=== PATIENT | male | born 1960 | race Caucasian/White ===

== ENCOUNTER → 2016-10-06 | Outpatient (REF) | payer OTHER ==
[~2016-10-06] MED LIST: ESOM1CAP5 PO; LISI10TA4 PO; PRAV1TAB39 PO
[2016-10-06 20:33] LABS: CHOLESTEROL LEVEL 212 MG/DL (<200); TRIGLYCERIDES LEVEL 60 MG/DL (<150)
== END ==
LOC: M SFHCCLAY 10:16
PROVIDERS: ATTEND Nurse Practitioner Family
DX: I10 Essential (primary) hypertension (principal); E78.4 Other hyperlipidemia; Z12.5 Encounter for screening for malignant neoplasm of prostate; E55.9 Vitamin D deficiency, unspecified

== ENCOUNTER → 2016-10-06 | Outpatient (REF) | payer OTHER ==
[2016-10-06 19:25] LABS: BASO % 0.1 % (0.0-1.0); EOS # 0.2 K/mm3 (0.0-0.50); EOS % 4.2 % (0.0-3.0); LYMPH # 0.8 K/mm3 (1.5-4.5); LYMPH % 17.4 % (24.0-44.0); MEAN CORPUSCULAR HEMOGLOBIN 29.1 pg (27.0-33.0); MEAN CORPUSCULAR HGB CONC 32.6 g/dl (32.0-36.5); MEAN CORPUSCULAR VOLUME 89.3 fl (80.0-96.0); MONO # 0.3 K/mm3 (0.0-0.8); MONO % 7.4 % (0.0-5.0); NEUTROPHILS # 3.1 K/mm3 (1.8-7.7); RED CELL DISTRIBUTION WIDTH 14.9 % (11.5-14.5); WHITE BLOOD COUNT 4.5 K/mm3 (4.0-10.0)
[2016-10-06 20:07] LABS: ALBUMIN 3.7 GM/DL (3.2-5.2); ALBUMIN/GLOBULIN RATIO 1.19 (1.00-1.93); ALKALINE PHOSPHATASE 79 U/L (45-117); ALT/SGPT 25 U/L (12-78); ANION GAP 5 MEQ/L (8-16); AST/SGOT 17 U/L (15-37); BILIRUBIN,TOTAL 0.5 MG/DL (0.2-1.0); BLOOD UREA NITROGEN 18 MG/DL (7-18); CALCIUM LEVEL 8.5 MG/DL (8.5-10.1); CARBON DIOXIDE LEVEL 25 MEQ/L (21-32); CHLORIDE LEVEL 109 MEQ/L (98-107); CREATININE FOR GFR 0.93 MG/DL (0.70-1.30); FERRITIN 11 NG/ML (26-388); GLOMERULAR FILTRATION RATE > 60.0 (>56); GLUCOSE, FASTING 90 MG/DL (70-105); PERCENT SATURATION 22.3 % (19.7-37.4); POTASSIUM SERUM 4.5 MEQ/L (3.5-5.1); SODIUM LEVEL 139 MEQ/L (136-145); TOTAL IRON BINDING CAPACITY 359 UG/DL (250-450); TOTAL PROTEIN 6.8 GM/DL (6.4-8.2)
== END ==
LOC: M LABDRAWC 16:18
PROVIDERS: ATTEND Internal Medicine Hematology & Oncology
DX: C15.5 Malignant neoplasm of lower third of esophagus (principal)

== ENCOUNTER → 2016-12-09 | Outpatient (REF) | payer OTHER ==
[2016-12-09 13:23] LABS: ANION GAP 6 MEQ/L (8-16); BLOOD UREA NITROGEN 15 MG/DL (7-18); CALCIUM LEVEL 9.4 MG/DL (8.5-10.1); CARBON DIOXIDE LEVEL 27 MEQ/L (21-32); CHLORIDE LEVEL 107 MEQ/L (98-107); CREATININE FOR GFR 0.73 MG/DL (0.70-1.30); GLOMERULAR FILTRATION RATE > 60.0 (>56); GLUCOSE, FASTING 100 MG/DL (70-105); POTASSIUM SERUM 4.8 MEQ/L (3.5-5.1); SODIUM LEVEL 140 MEQ/L (136-145)
[2016-12-09 14:04] LABS: BASO % 0.5 % (0.0-1.0); EOS # 0.3 K/mm3 (0.0-0.50); EOS % 5.7 % (0.0-3.0); LARGE UNSTAINED CELL # 0.1 K/mm3 (0.0-0.4); LARGE UNSTAINED CELL % 1.3 % (0.0-4.0); LYMPH % 20.1 % (24.0-44.0); MEAN CORPUSCULAR HEMOGLOBIN 29.2 pg (27.0-33.0); MEAN CORPUSCULAR VOLUME 91.3 fl (80.0-96.0); MONO # 0.4 K/mm3 (0.0-0.8); MONO % 7.6 % (0.0-5.0); NEUTROPHILS # 3.1 K/mm3 (1.8-7.7); NEUTROPHILS % 64.7 % (36.0-66.0); PLATELET COUNT, AUTOMATED 250 k/mm3 (150-450); WHITE BLOOD COUNT 4.8 K/mm3 (4.0-10.0)
== END ==
LOC: M SFHCCLAY 07:05
PROVIDERS: ATTEND Nurse Practitioner Family
DX: Z01.818 Encounter for other preprocedural examination (principal)

== ENCOUNTER → 2017-01-03 | Outpatient (REF) | payer OTHER | LOC: M SFHCCLAY 07:20 | PROVIDERS: ATTEND Nurse Practitioner Family | DX: E78.4 Other hyperlipidemia (principal); E55.9 Vitamin D deficiency, unspecified ==

== ENCOUNTER → 2017-01-11 | Outpatient (REF) | payer OTHER | LOC: M SFHCCLAY 10:22 | PROVIDERS: ATTEND Nurse Practitioner Family | DX: Z12.6 Encounter for screening for malignant neoplasm of bladder (principal) ==

== ENCOUNTER → 2017-05-03 | Outpatient (REF) | payer OTHER ==
[2017-05-03 11:46] LABS: BASO # 0.1 10^3/uL (0.0-0.2); BASO % 1.1 % (0.0-1.0); EOS # 0.2 10^3/uL (0.0-0.50); EOS % 3.4 % (0.0-3.0); IMMATURE GRANULOCYTE % 0.2 % (0-0); LYMPH # 1.2 10^3/uL (1.5-4.5); LYMPH % 24.7 % (24.0-44.0); MEAN CORPUSCULAR HGB CONC 33.8 g/dl (32.0-36.5); MEAN CORPUSCULAR VOLUME 91.8 fl (80.0-96.0); MONO # 0.4 10^3/uL (0.0-0.8); MONO % 8.6 % (0.0-5.0); NEUTROPHILS # 2.9 10^3/uL (1.8-7.7); PLATELET COUNT, AUTOMATED 276 10^3/uL (150-450); RED CELL DISTRIBUTION WIDTH 14.9 % (11.5-14.5); WHITE BLOOD COUNT 4.7 10^3/uL (4.0-10.0)
[2017-05-03 12:02] LABS: ALBUMIN 3.5 GM/DL (3.2-5.2); ALKALINE PHOSPHATASE 83 U/L (45-117); ALT/SGPT 27 U/L (12-78); ANION GAP 7 MEQ/L (8-16); AST/SGOT 18 U/L (7-37); BILIRUBIN,TOTAL 0.7 MG/DL (0.2-1.0); BLOOD UREA NITROGEN 16 MG/DL (7-18); CALCIUM LEVEL 8.5 MG/DL (8.5-10.1); CARBON DIOXIDE LEVEL 23 MEQ/L (21-32); CHLORIDE LEVEL 111 MEQ/L (98-107); CREATININE FOR GFR 0.66 MG/DL (0.70-1.30); FERRITIN 41 NG/ML (26-388); GLOMERULAR FILTRATION RATE > 60.0 (>56); GLUCOSE, FASTING 93 MG/DL (70-105); PERCENT SATURATION 46.7 % (19.7-50.0); POTASSIUM SERUM 4.7 MEQ/L (3.5-5.1); SODIUM LEVEL 141 MEQ/L (136-145); TOTAL IRON BINDING CAPACITY 302 UG/DL (250-450)
== END ==
LOC: M LABDRAWC 11:16
PROVIDERS: ATTEND Internal Medicine Hematology & Oncology
DX: C15.5 Malignant neoplasm of lower third of esophagus (principal); D64.9 Anemia, unspecified; E78.4 Other hyperlipidemia; E55.9 Vitamin D deficiency, unspecified

== ENCOUNTER → 2017-05-03 | Outpatient (REF) | payer OTHER | LOC: M SFHCCLAY 08:05 | PROVIDERS: ATTEND Nurse Practitioner Family | DX: E78.4 Other hyperlipidemia (principal); E55.9 Vitamin D deficiency, unspecified ==

== ENCOUNTER → 2017-10-17 | Outpatient (REF) | payer OTHER ==
[2017-10-17 11:35] LABS: BASO % 0.8 % (0.0-1.0); EOS # 0.2 10^3/uL (0.0-0.50); EOS % 4.8 % (0.0-3.0); HEMATOCRIT 40.6 % (42.0-52.0); HEMOGLOBIN 13.9 g/dl (13.5-17.5); IMMATURE GRANULOCYTE % 0.2 % (0-3.0); LYMPH # 1.2 10^3/uL (1.5-4.5); LYMPH % 23.9 % (24.0-44.0); MEAN CORPUSCULAR HGB CONC 34.2 g/dl (32.0-36.5); MEAN CORPUSCULAR VOLUME 93.5 fl (80.0-96.0); MONO # 0.4 10^3/uL (0.0-0.8); MONO % 7.8 % (0.0-5.0); NEUTROPHILS # 3.1 10^3/uL (1.8-7.7); NEUTROPHILS % 62.5 % (36.0-66.0); PLATELET COUNT, AUTOMATED 259 10^3/uL (150-450); RED BLOOD COUNT 4.34 10^6/uL (4.30-6.10); RED CELL DISTRIBUTION WIDTH 14.5 % (11.5-14.5)
[2017-10-17 12:08] LABS: ALBUMIN 3.7 GM/DL (3.2-5.2); ALBUMIN/GLOBULIN RATIO 1.19 (1.00-1.93); ALKALINE PHOSPHATASE 89 U/L (45-117); ALT/SGPT 42 U/L (12-78); ANION GAP 6 MEQ/L (8-16); AST/SGOT 41 U/L (7-37); BILIRUBIN,TOTAL 0.6 MG/DL (0.2-1.0); BLOOD UREA NITROGEN 15 MG/DL (7-18); CALCIUM LEVEL 8.8 MG/DL (8.5-10.1); CARBON DIOXIDE LEVEL 26 MEQ/L (21-32); CHLORIDE LEVEL 109 MEQ/L (98-107); CREATININE FOR GFR 0.71 MG/DL (0.70-1.30); FERRITIN 64 NG/ML (26-388); GLOMERULAR FILTRATION RATE > 60.0 (>56); GLUCOSE, FASTING 87 MG/DL (70-100); IRON (FE) 112 UG/DL (65-175); PERCENT SATURATION 38.6 % (19.7-50.0); POTASSIUM SERUM 4.2 MEQ/L (3.5-5.1); SODIUM LEVEL 141 MEQ/L (136-145); TOTAL IRON BINDING CAPACITY 290 UG/DL (250-450); TOTAL PROTEIN 6.8 GM/DL (6.4-8.2)
== END ==
LOC: M LABDRAWC 11:18
DX: C15.5 Malignant neoplasm of lower third of esophagus (principal)

== ENCOUNTER → 2017-10-17 | Outpatient (REF) | payer OTHER ==
[2017-10-17 11:36] LABS: HEMATOCRIT 40.4 % (42.0-52.0); HEMOGLOBIN 13.6 g/dl (13.5-17.5); MEAN CORPUSCULAR HEMOGLOBIN 31.6 pg (27.0-33.0); MEAN CORPUSCULAR HGB CONC 33.7 g/dl (32.0-36.5); PLATELET COUNT, AUTOMATED 238 10^3/uL (150-450); RED CELL DISTRIBUTION WIDTH 14.6 % (11.5-14.5); WHITE BLOOD COUNT 5.1 10^3/uL (4.0-10.0)
[2017-10-17 12:04] LABS: ALKALINE PHOSPHATASE 87 U/L (45-117); ALT/SGPT 43 U/L (12-78); ANION GAP 5 MEQ/L (8-16); AST/SGOT 40 U/L (7-37); BILIRUBIN,TOTAL 0.7 MG/DL (0.2-1.0); BLOOD UREA NITROGEN 16 MG/DL (7-18); CALCIUM LEVEL 8.8 MG/DL (8.5-10.1); CARBON DIOXIDE LEVEL 26 MEQ/L (21-32); CHLORIDE LEVEL 110 MEQ/L (98-107); CREATININE FOR GFR 0.68 MG/DL (0.70-1.30); GLOMERULAR FILTRATION RATE > 60.0 (>56); GLUCOSE, FASTING 90 MG/DL (70-100); POTASSIUM SERUM 4.3 MEQ/L (3.5-5.1); SODIUM LEVEL 141 MEQ/L (136-145); TRIGLYCERIDES LEVEL 54 MG/DL (<150)
[2017-10-17 12:05] LABS: ALBUMIN 3.8 GM/DL (3.2-5.2); ALBUMIN/GLOBULIN RATIO 1.27 (1.00-1.93); CHOLESTEROL LEVEL 196 MG/DL (<200); CHOLESTEROL RISK RATIO 3.266 (<5); HDL CHOLESTEROL 60 MG/DL (>40); LDL CHOLESTEROL 125.2 MG/DL (<100); NON-HDL-C 136 MG/DL; TOTAL PROTEIN 6.8 GM/DL (6.4-8.2)
== END ==
LOC: M SFHCCLAY 07:15
DX: I10 Essential (primary) hypertension (principal); K21.9 Gastro-esophageal reflux disease without esophagitis; E78.4 Other hyperlipidemia

== ENCOUNTER → 2018-08-20 | Outpatient (REF) | payer MEDICARE, OTHER ==
[2018-08-20 16:38] LABS: BASO % 0.6 % (0.0-1.0); EOS # 0.1 10^3/uL (0.0-0.50); EOS % 1.1 % (0.0-3.0); HEMATOCRIT 36.3 % (42.0-52.0); HEMOGLOBIN 12.1 g/dl (13.5-17.5); LYMPH # 1.1 10^3/uL (1.5-4.5); LYMPH % 17.3 % (24.0-44.0); MEAN CORPUSCULAR HEMOGLOBIN 33.5 pg (27.0-33.0); MEAN CORPUSCULAR HGB CONC 33.3 g/dl (32.0-36.5); MEAN CORPUSCULAR VOLUME 100.6 fl (80.0-96.0); MONO # 0.6 10^3/uL (0.0-0.8); MONO % 9.1 % (0.0-5.0); NEUTROPHILS # 4.5 10^3/uL (1.8-7.7); NEUTROPHILS % 71.4 % (36.0-66.0); PLATELET COUNT, AUTOMATED 301 10^3/uL (150-450); RED BLOOD COUNT 3.61 10^6/uL (4.30-6.10); WHITE BLOOD COUNT 6.3 10^3/uL (4.0-10.0)
[2018-08-20 16:57] LABS: ALBUMIN 3.1 GM/DL (3.2-5.2); ALT/SGPT 26 U/L (12-78); BILIRUBIN,TOTAL 0.4 MG/DL (0.2-1.0); BLOOD UREA NITROGEN 16 MG/DL (7-18); CALCIUM LEVEL 8.6 MG/DL (8.5-10.1); CARBON DIOXIDE LEVEL 26 MEQ/L (21-32); CHLORIDE LEVEL 110 MEQ/L (98-107); GLOMERULAR FILTRATION RATE > 60.0 (>56); GLUCOSE, FASTING 75 MG/DL (70-100); POTASSIUM SERUM 4.5 MEQ/L (3.5-5.1); SODIUM LEVEL 142 MEQ/L (136-145); TOTAL PROTEIN 6.3 GM/DL (6.4-8.2)
== END ==
LOC: M SHH 16:05
PROVIDERS: ATTEND Internal Medicine Hematology & Oncology
DX: C15.5 Malignant neoplasm of lower third of esophagus (principal)

== ENCOUNTER 2019-06-13 12:54 | Observation (INO) | payer MEDICARE ==
[~2019-06-13] VITALS: Ht 175.3 cm; Wt 57.3 kg
[~2019-06-13 12:54] MED LIST changes: -AMOX500C PO; -MORP15TA2 PO; -PANT40TA3 PO
[2019-06-13] MEDS ORDERED: PIPERACILLIN/TAZOBACTAM SOD 3.375 GM in D5W MINI-BAG PLUS 50 ML IV ONE (14:45)
[2019-06-13] MEDS ORDERED: ONDANSETRON 4MG/2ML VIAL (J2405) IV ONE (14:45)
--- NOTE | 2019-06-13 14:46 | REP ---
Portable chest, 02:28 p.m., single AP view with the patient upright: Comparison is the chest CT dated 09/30/2015. There is a right IJ Gunybc-H-Xkxl catheter with the tip in the superior vena cava in satisfactory position. Lung mo are clear. Cardiac size is normal. The karolina, mediastinum, skeletal structures are unremarkable. Impression: Right IJ central venous [id number]-[id number]-[id number] catheter. Negative portable chest. Electronically Signed by Femi Sen MD 06/13/2019 02:37 P
[2019-06-13] MEDS: MORPHINE 4 MG/ML 1ML VIAL/SYRINGE (J2270) IV PRN ×2 (14:58→16:00)
[2019-06-13] MEDS: NS 1,000 ML IV SCH ×3 (14:59→23:00)
[2019-06-13 15:01] LABS: VENOUS BASE EXCESS -1.3 (-2.0-2.0); VENOUS HCO3 23.3 MEQ/L (23.0-27.0); VENOUS O2 SATURATION 85.4 % (60.0-80.0); VENOUS PARTIAL PRESSURE CO2 38.2 mmHg (38.0-50.0); VENOUS PARTIAL PRESSURE O2 55.3 mmHg (30.0-50.0); VENOUS PH 7.403 UNITS (7.330-7.430); VENOUS STANDARD HCO3 23.2 MEQ/L; VENOUS TOTAL CO2 24.5 MEQ/L (24.0-28.0)
[2019-06-13 15:10] LABS: HEMATOCRIT 26.8 % (42.0-52.0); HEMOGLOBIN 8.7 g/dl (13.5-17.5); MEAN CORPUSCULAR HEMOGLOBIN 32.8 pg (27.0-33.0); MEAN CORPUSCULAR HGB CONC 32.5 g/dl (32.0-36.5); MEAN CORPUSCULAR VOLUME 101.1 fl (80.0-96.0); PLATELET COUNT, AUTOMATED 247 10^3/uL (150-450); RED BLOOD COUNT 2.65 10^6/uL (4.30-6.10); WHITE BLOOD COUNT 2.4 10^3/uL (4.0-10.0)
[2019-06-13 15:21] LABS: INR 1.04; PROTHROMBIN TIME 13.3 SECONDS (11.8-14.0)
[2019-06-13 15:22] LABS: PARTIAL THROMBOPLASTIN TIME 35.7 SECONDS (25.0-38.4)
[2019-06-13 15:35] LABS: ALBUMIN 3.3 GM/DL (3.2-5.2); ALT/SGPT 30 U/L (12-78); BILIRUBIN,DIRECT 0.2 MG/DL (0.0-0.2); BILIRUBIN,TOTAL 0.5 MG/DL (0.2-1.0); BLOOD UREA NITROGEN 15 MG/DL (7-18); C REACTIVE PROTEIN QUANTITATIV 8.26 MG/DL (0.00-0.30); CALCIUM LEVEL 8.6 MG/DL (8.5-10.1); CARBON DIOXIDE LEVEL 26 MEQ/L (21-32); CHLORIDE LEVEL 103 MEQ/L (98-107); CK-MB VALUE MASS < 1.0 NG/ML (<3.6); CPK CREATINE PHOSPHOKINASE 72 U/L (39-308); CREATININE FOR GFR 0.69 MG/DL (0.70-1.30); GLOMERULAR FILTRATION RATE > 60.0 (>56); GLUCOSE, FASTING 89 MG/DL (70-100); MB/CK RELATIVE INDEX 1.39 (< OR =4); POTASSIUM SERUM 4.4 MEQ/L (3.5-5.1); SODIUM LEVEL 134 MEQ/L (136-145); TOTAL PROTEIN 6.7 GM/DL (6.4-8.2); TROPONIN I < 0.02 NG/ML (< 0.10)
[2019-06-13] MEDS ORDERED: ISOVUE-370 76% 100ML VIAL (Q9967) As Ordered ONE (15:37)
[2019-06-13 15:46] LABS: ANISOCYTOSIS 2+; ATYPICAL LYMPH 3 % (0-5); BASOPHILS 1 % (0-1); EOSINOPHILS 2 % (0-3); HYPOCHROMASIA 2+; LYMPHOCYTES 31 % (16-44); METAMYELOCYTES 5 % (0-0); MONOCYTES 25 % (0-5); NEUTROPHILS 28 % (28-66)
[2019-06-13 15:47] LABS: PLATELET ESTIMATE NORMAL (NORMAL)
[2019-06-13] MEDS ORDERED: AMPICILLIN SOD/SULBACTAM SOD 3 GM in D5W MINI-BAG PLUS 100 ML IV SCH (17:00)
--- NOTE | 2019-06-13 17:13 | REPVR ---
PROCEDURE INFORMATION: Exam: CT Neck With Contrast Exam date and time: 06/13/2019 4:35 PM Age: 59 years old Clinical indication: Other: Mouth pain; Patient HX: Had tooth pulled recently; Additional info: ? Abscess TECHNIQUE: Imaging protocol: Computed tomography images of the neck with intravenous contrast. Radiation optimization: All CT scans at this facility use at least one of these dose optimization techniques: automated exposure control; mA and/or kV adjustment per patient size (includes targeted exams where dose is matched to clinical indication); or iterative reconstruction. Contrast material: ISOVUE 370; Contrast volume: 75 ml; Contrast route: IV; COMPARISON: No relevant prior studies available. FINDINGS: Orbits: The orbits are unremarkable. Sinuses: Mucoperiosteal thickening in the floor the left maxillary antrum with a small air-fluid level in the right maxillary antrum; remainder paranasal sinuses are clear. The ostiomeatal complexes are patent bilaterally although narrowed on the right by mucosal disease. Nasopharynx: Unremarkable. Oropharynx: Calcifications are seen in the tonsillar crypts. Hypopharynx: Unremarkable Larynx: Normal appearance of the epiglottis. Retropharyngeal space: Unremarkable. Submandibular/Parotid glands: Normal. Glands are normal in size. Thyroid: Normal. No enlarged or calcified nodules. Lymph nodes: Mildly enlarged lymph nodes in the right carotid chain. Trachea: Visualized trachea is unremarkable. Esophagus: There is enlargement of the esophagus and surgical sutures are apparent which may be due to a gastric pull-through of which only the upper portion is imaged. Lungs: No lesions at the lung apices. Dental: Central venous catheter tip is seen in the region of the superior vena cava. Mastoid air cells: The middle ear cavities and mastoid air cells are clear. There is a poorly defined them mildly rim enhancing fluid collection along the medial margin of the body of the right lateral ventricle containing an air collection. The fluid collection measures approximately 2 cm AP by 1 cm in width series 301, image 44 and likely represents an abscess. The phlegmon extends into the floor of the mouth on the right medially displaced in the right sublingual gland. There is also inflammation and possible abscess overlying the superficial margin of the body of the right lateral ventricle where fluid collection is seen measuring 1.2 x 1.5 cm series 301, image 44. There is low density in the surrounding soft tissues likely due to edema/phlegmon with compression of the right posterolateral oropharynx. Bones/joints: There is mild reversal of normal cervical lordosis. There is disc space narrowing and endplate degeneration at C6-C7. Soft tissues: No prevertebral soft tissue swelling. IMPRESSION: There is abscess and probable phlegmon along both the deep and superficial margins of the body of the mandible on the right. Electronically signed by: Justina Devlin On 06/13/2019 17:12:28 PM
[2019-06-13] MEDS ORDERED: PANT40TA3 PO (17:19)
[2019-06-13] MEDS ORDERED: AMOX500C PO (17:40)
[2019-06-13] MEDS ORDERED: MORP15TA2 PO (17:40)
--- NOTE | 2019-06-13 17:41 | HPEPDOC ---
General Date of Admission Jun 13, 2019 at 12:55 Date of Service: Jun 13, 2019 Chief Complaint The patient is a 59-year-old male who presented to the ER with after being sent in by dental surgery for an abscess History of Present Illness Patient is a 59-year-old male with a past medical history of HTN, DLP, GERD and stage IV esophageal cancer (metastasis to liver - reports 60% is cance r, s/p chemotherapy x 5 different kinds, currently on 5th round of last chemotherapy) who has presented to the emergency room at the direction of his oral surgeon. Patient has reported that at home on Monday/Monday he experienced dental pain and fevers/chills. . He reported that he did not measure his temperature, but usually does experience dental pain after receiving chemotherapy, most recent of which was on 06/05/2019. Patient went to go see his dentist on Monday, Dr. Escobedo/Dr. Turner. Patient was then referred to dental surgery today for further evaluation. At the dental surgeons office, patient was found to have a dental abscess. He had his tooth removed and pus was drained. Patient was then advised to go to the emergency room for IV antibiotics. Patient reports a mild headache. He denies nausea, vomiting, chest pain, shortness of breath, palpitations, cough, abdominal pain, constipation, diarrhea, urinary discomfort. Patient reports that his appetite is poor and has noted a significant weight loss. Home Medications Scheduled Lisinopril (Lisinopril) 10 Mg Tab, 10 MG PO DAILY, (Reported) Pantoprazole Sodium (Pantoprazole Sodium) 40 Mg Tablet.dr, 40 MG PO DAILY, (Reported) Pravastatin Sodium (Pravachol) 20 Mg Tab, 20 MG PO DAILY, (Reported) Allergies Coded Allergies: No Known Allergies (Verified , 08/05/05) Past Medical History Medical History HTN, DLP, GERD and stage IV esophageal cancer (metastasis to liver - reports 60% is cancer, s/p chemotherapy x 5 different kinds, currently on 5th round of last chemotherapy) Surgical History Abdominal hernia repair TURP 2005 Family History - Family history was reviewed and is noncontributory Social History - Patient reports that he is an active smoker of 30 years with cigars; reports social alcohol use, drinks a six pack over a week; patient reports that he smokes marijuana legally - Denies recent travel or sick contacts - Lives with - Occupation; 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 Oral cavity dried blood appreciated - CVS: RRR, +S1S2 - Lungs: Fair air entry bilaterally, No appreciable wheezing / rales / rhonchi - Abdomen: Soft, Non-distended, Non-tender - Extremities: No lower extremity edema, No calf tenderness - Neuro: No focal motor or sensory deficit - Skin: No visible rashes Laboratory Data Labs 24H Laboratory Tests 2 06/13/19 14:51: Neutrophils # (Auto) , Nucleated Red Blood Cells % (auto) 0.0, Neutrophils 28, Band Neutrophils 5, Lymphocytes (Manual) 31, Monocytes (Manual) 25H, Eosinophils (Manual) 2, Basophils (Manual) 1, Metamyelocytes 5H, Atypical Lymphocytes 3, Hypochromasia 2+, Anisocytosis 2+, Platelet Estimate NORMAL, Prothrombin Time 13.3, Prothromb Time International Ratio 1.04, Activated Partial Thromboplast Time 35.7, Anion Gap 5L, Glomerular Filtration Rate > 60.0, Lactic Acid Level 0.9, Calcium Level 8.6, Total Bilirubin 0.5, Direct Bilirubin 0.2, Aspartate Amino Transf (AST/SGOT) 109H, Alanine Aminotransferase (ALT/SGPT) 30, Alkaline Phosphatase 335H, Total Creatine Kinase 72, Creatine Kinase MB < 1.0, Creatine Kinase MB Relative Index 1.39, Troponin I < 0.02, C-Reactive Protein, Quantitative 8.26H, Total Protein 6.7, Albumin 3.3, Albumin/Globulin Ratio 0.97L 06/13/19 14:52: Blood Gas Bicarbonate Standard 23.2, Venous Blood pH 7.403, Venous Blood Partial Pressure CO2 38.2, Venous Blood Partial Pressure O2 55.3H, Venous Blood Total Carbon Dioxide 24.5, Venous Blood HCO3 23.3, Venous Blood Oxygen Saturation 85.4H, Venous Blood Base Excess -1.3 CBC/BMP Laboratory Tests 06/13/19 14:51 Microbiology Microbiology 06/13/19 Blood Culture, Received Pending 06/13/19 Blood Culture, Received Pending Plan / VTE VTE Prophylaxis Ordered?: Yes Plan Plan Right-sided dental abscess, in the setting of neutropenia from chemotherapy - Was sent in by dental surgery after he was found to have a dental abscess with pus removal - Currently patient is hemodynamically stable and afebrile - Physical is without any airway compromise and patient is resting comfortably - Leukopenia; no lactic acidosis - Patient was seen and evaluated by dental surgery as an outpatient and while in the emergency room; will continue to follow on consultation - Will continue with IV fluids and Unasyn based on surgery recommendations Neutropenia - Currently, patient is afebrile and hemodynamically stable - ANC of 792 - Patient has been given a single dose of Neupogen 300 g subcutaneously; should expect to see results of increase in white cell count within the next 2-3 days - See above for antibiotic coverage Macrocytic anemia - Hemoglobin is noted to be lower than baseline compared to 08/20/2018 - Possibly secondary to chemotherapy - Patient does not have any active bleeding at this time - Will continue to monitor counts Stage IV esophageal cancer - Metastasis to liver - reports 60% is cancer - s/p chemotherapy x 5 different kinds, currently on 5th round of last chemotherapy - Patient follows with an oncologist in [place] at [facility] - Patient is indicated that he does not want to pursue any further chemotherapy - He is indicated to me that he will wants to pursue a better quality of life and has been in discussion with hospice - Patient has indicated that he is DO NOT RESUSCITATE and DO NOT INTUBATE HTN - Blood pressure is well controlled - c/w Lisinopril with holding parameters DLP - c/w Pravastatin GERD - c/w Protonix DVT prophylaxis - Will start TEDs/Sequentials (re: Recent dental procedure) Cases been signed out to family medicine, PORSHA Ferraro MD Jun 13, 2019 17:41
[2019-06-13] MEDS: PERCOCET 5MG/325MG TAB PO PRN ×2 (18:39→23:02)
[2019-06-13 19:05] VITALS: BP 116/60
[2019-06-13] MEDS ORDERED: FILGRASTIM 300 MCG/0.5 ML SYRINGE (J1442 PER 1MCG) SC ONE (20:00)
[2019-06-13 20:47] VITALS: BP 105/59
[2019-06-13] MEDS: AMPICILLIN SOD/SULBACTAM SOD 3 GM in D5W MINI-BAG PLUS 100 ML IV SCH (20:50)
[2019-06-14] MEDS: NS 1,000 ML IV SCH ×5 (02:57→14:28)
[2019-06-14] MEDS: AMPICILLIN SOD/SULBACTAM SOD 3 GM in D5W MINI-BAG PLUS 100 ML IV SCH ×4 (02:57→20:44)
[2019-06-14 05:49] VITALS: BP 104/59
[2019-06-14] MEDS: PERCOCET 5MG/325MG TAB PO PRN ×2 (05:49→13:49)
[2019-06-14 06:14] LABS: HEMATOCRIT 27.5 % (42.0-52.0); HEMOGLOBIN 8.8 g/dl (13.5-17.5); MEAN CORPUSCULAR HEMOGLOBIN 32.1 pg (27.0-33.0); MEAN CORPUSCULAR VOLUME 100.4 fl (80.0-96.0); PLATELET COUNT, AUTOMATED 241 10^3/uL (150-450); RED BLOOD COUNT 2.74 10^6/uL (4.30-6.10); WHITE BLOOD COUNT 2.9 10^3/uL (4.0-10.0)
[2019-06-14 06:32] LABS: BLOOD UREA NITROGEN 8 MG/DL (7-18); CALCIUM LEVEL 8.1 MG/DL (8.5-10.1); CARBON DIOXIDE LEVEL 25 MEQ/L (21-32); CHLORIDE LEVEL 108 MEQ/L (98-107); CREATININE FOR GFR 0.66 MG/DL (0.70-1.30); GLOMERULAR FILTRATION RATE > 60.0 (>56); GLUCOSE, FASTING 91 MG/DL (70-100); MAGNESIUM LEVEL 2.1 MG/DL (1.8-2.4); POTASSIUM SERUM 4.2 MEQ/L (3.5-5.1); SODIUM LEVEL 137 MEQ/L (136-145)
[2019-06-14 06:38] LABS: ANISOCYTOSIS 1+; EOSINOPHILS 1 % (0-3); LYMPHOCYTES 41 % (16-44); METAMYELOCYTES 4 % (0-0); MONOCYTES 24 % (0-5); NEUTROPHILS 30 % (28-66); PLATELET ESTIMATE NORMAL (NORMAL)
[2019-06-14 06:39] LABS: OVALOCYTES 1+; POLYCHROMASIA 1+
[2019-06-14] MEDS: lisinopriL 10 MG TAB PO SCH (08:05)
[2019-06-14] MEDS: PANTOPRAZOLE 40MG TAB (PROTONIX) PO SCH (08:05)
[2019-06-14] MEDS: PRAVASTATIN 20 MG TAB PO SCH (08:05)
--- NOTE | 2019-06-14 09:36 | IPNPDOC ---
Subjective Date Seen The patient was seen on 06/14/19. Subjective Chief Complaint/HPI Pt this morning without new concerns. He states that he is feeling alright. He denies pain at this time. Dr Banks is asking for a repeat CT neck with contrast, however it has been less thatn 24 h since his last and therefore the risk of ARF is too great. General: Denies: Fatigue Constitutional: Denies: Chills, Fever ENT: Denies: Head Aches Pulmonary: Denies: Dyspnea, Cough Cardiovascular: Denies: Chest Pain, Palpitations Gastrointestinal: Denies: Nausea, Vomiting, Diarrhea Neurological: Denies: Weakness Psych: Denies: Mood Normal Objective Physical Examination General Exam: Positive: Alert; Negative: Cooperative (Affect is flat, eye contact is poor, monotone), No Acute Distress ENT Exam: Positive: Mucous membr. moist/pink Chest Exam: Positive: Clear to auscultation, Normal air movement Heart Exam: Positive: Normal S1, Normal S2 Abdomen Exam: Positive: Normal bowel sounds, Soft; Negative: Tenderness Extremity Exam: Negative: Edema Neuro Exam: Positive: Normal Speech Psych Exam: Negative: Mood NL Assessment /Plan Problems (1) Leukopenia Status: Acute Response to Treatment: Stable Problem Text: 2 chemorx 06/14 2.9 (ANC 870) (2.4) 06/13 sp filgrastim 300 x 1 (2) Macrocytic anemia Status: Acute Problem Text: favor ACD, chemorx 06/14/19 8.8, 100, 2.9, 241K 08/2018 hgb 12.1 (3) Dental abscess Status: Acute Problem Text: D2 amp/sul 06/14 AF, stable BP; case dw Dr. Banks-if remains AF, decreased swelling/pain, dc in AM on Augmentin c 06/19/19 office fu 06/13 BCX2 NG 06/13 sp abscess drainage in office 06/13 CT neck: There is also inflammation and possible abscess overlying the superficial margin of the body of the right lateral ventricle where fluid collection is seen measuring 1.2 x 1.5 cm series 301, image 44. There is low density in the surrounding soft tissues likely due to edema/phlegmon with compression of the right posterolateral oropharynx. Bones/joints: There is mild reversal of normal cervical lordosis. There is disc space narrowing and endplate degeneration at C6-C7. Soft tissues: No prevertebral soft tissue swelling. IMPRESSION: There is abscess and probable phlegmon along both the deep and superficial margins of the body of the mandible on the right. Electronically signed by: Justina Devlin On 06/13/2019 17:12:28 PM (4) Esophageal cancer Status: Chronic Response to Treatment: Stable Problem Text: chemorx as per [facility] Onc (5) Hypertension Status: Chronic Response to Treatment: Stable Problem Specific Plan: Monitor Clinically Problem Text: Stable on HD lisin 10 Plan/VTE VTE Prophylaxis Ordered?: Yes VS, I&O, 24H, Fishbone Vital Signs/I&O Vital Signs Date Time Temp Pulse Resp B/P (MAP) Pulse Ox O2 Delivery O2 Flow Rate FiO2 06/14/19 08:05 104/59 06/14/19 06:26 16 06/14/19 05:49 99.2 68 95 Room Air I&O- Last 24 Hours up to 6 AM 06/14/19 06:00 Intake Total 4200 ml Output Total 0 ml Balance 4200 ml Laboratory Data 24H LABS Laboratory Tests 2 06/13/19 14:51: Neutrophils # (Auto) , Nucleated Red Blood Cells % (auto) 0.0, Neutrophils 28, Band Neutrophils 5, Lymphocytes (Manual) 31, Monocytes (Manual) 25H, Eosinophils (Manual) 2, Basophils (Manual) 1, Metamyelocytes 5H, Atypical Lymphocytes 3, Hypochromasia 2+, Anisocytosis 2+, Platelet Estimate NORMAL, Prothrombin Time 13.3, Prothromb Time International Ratio 1.04, Activated Partial Thromboplast Time 35.7, Anion Gap 5L, Glomerular Filtration Rate > 60.0, Lactic Acid Level 0.9, Calcium Level 8.6, Total Bilirubin 0.5, Direct Bilirubin 0.2, Aspartate Amino Transf (AST/SGOT) 109H, Alanine Aminotransferase (ALT/SGPT) 30, Alkaline Phosphatase 335H, Total Creatine Kinase 72, Creatine Kinase MB < 1.0, Creatine Kinase MB Relative Index 1.39, Troponin I < 0.02, C-Reactive Protein, Quantitative 8.26H, Total Protein 6.7, Albumin 3.3, Albumin/Globulin Ratio 0.97L 06/13/19 14:52: Blood Gas Bicarbonate Standard 23.2, Venous Blood pH 7.403, Venous Blood Partial Pressure CO2 38.2, Venous Blood Partial Pressure O2 55.3H, Venous Blood Total Ca rbon Dioxide 24.5, Venous Blood HCO3 23.3, Venous Blood Oxygen Saturation 85.4H, Venous Blood Base Excess -1.3 06/14/19 06:00: Nucleated Red Blood Cells % (auto) 0.7H, Neutrophils 30, Lymphocytes (Manual) 41, Monocytes (Manual) 24H, Eosinophils (Manual) 1, Metamyelocytes 4H, Ani socytosis 1+, Platelet Estimate NORMAL, Anion Gap 4L, Glomerular Filtration Rate > 60.0, Calcium Level 8.1L, Immature Granulocyte % (Auto) , Polychromasia 1+, Ovalocytes 1+, Magnesium Level 2.1 CBC/BMP Laboratory Tests 06/13/19 14:51 06/14/19 06:00 Microbiology Microbiology 06/13/19 Blood Culture, Received Pending 06/13/19 Blood Culture, Received Pending KASANDRA SCOTT PA-C Jun 14, 2019 09:36 Marcello Granados M.D. Jun 14, 2019 17:26
--- NOTE | 2019-06-14 13:19 | ECGEPIP ---
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
[2019-06-14 14:00] VITALS: BP 98/58
[2019-06-14] MEDS: LR 1,000 ML IV SCH (17:39)
[2019-06-14 22:00] VITALS: BP 97/53
[2019-06-15] MEDS: AMPICILLIN SOD/SULBACTAM SOD 3 GM in D5W MINI-BAG PLUS 100 ML IV SCH ×3 (03:34→15:00)
[2019-06-15 06:00] VITALS: BP 105/56
[2019-06-15 07:06] LABS: HEMATOCRIT 24.9 % (42.0-52.0); HEMOGLOBIN 8.1 g/dl (13.5-17.5); MEAN CORPUSCULAR HEMOGLOBIN 32.4 pg (27.0-33.0); MEAN CORPUSCULAR HGB CONC 32.5 g/dl (32.0-36.5); MEAN CORPUSCULAR VOLUME 99.6 fl (80.0-96.0); PLATELET COUNT, AUTOMATED 266 10^3/uL (150-450); WHITE BLOOD COUNT 5.1 10^3/uL (4.0-10.0)
[2019-06-15 07:26] LABS: BLOOD UREA NITROGEN 7 MG/DL (7-18); CARBON DIOXIDE LEVEL 23 MEQ/L (21-32); CHLORIDE LEVEL 109 MEQ/L (98-107); CREATININE FOR GFR 0.52 MG/DL (0.70-1.30); GLOMERULAR FILTRATION RATE > 60.0 (>56); GLUCOSE, FASTING 85 MG/DL (70-100); MAGNESIUM LEVEL 2.1 MG/DL (1.8-2.4); POTASSIUM SERUM 3.9 MEQ/L (3.5-5.1); SODIUM LEVEL 140 MEQ/L (136-145)
[2019-06-15 07:46] LABS: ATYPICAL LYMPH 4 % (0-5); LYMPHOCYTES 29 % (16-44); METAMYELOCYTES 2 % (0-0); MONOCYTES 17 % (0-5); MYELOCYTES 2 % (0-0); NEUTROPHILS 30 % (28-66)
[2019-06-15 07:48] LABS: PLATELET ESTIMATE NORMAL (NORMAL); POLYCHROMASIA 1+
[2019-06-15 07:49] LABS: ANISOCYTOSIS 2+; HYPOCHROMASIA 1+; POIKILOCYTOSIS 1+
[2019-06-15] MEDS: PRAVASTATIN 20 MG TAB PO SCH (08:26)
[2019-06-15] MEDS: PANTOPRAZOLE 40MG TAB (PROTONIX) PO SCH (08:26)
[2019-06-15 08:30] VITALS: BP 108/60
[2019-06-15] MEDS: lisinopriL 10 MG TAB PO SCH (08:30)
[2019-06-15] MEDS ORDERED: FILGRASTIM 300 MCG/0.5 ML SYRINGE (J1442 PER 1MCG) SC SCH (09:00)
[2019-06-15] MEDS: PERCOCET 5MG/325MG TAB PO PRN (09:28)
[2019-06-15] MEDS: LR 1,000 ML IV SCH (12:19)
[2019-06-15 14:00] VITALS: BP 123/60
[2019-06-15] MEDS ORDERED: SODIUM CHLORIDE 0.9% INJ 10 ML SYR IV PRN (16:00)
--- NOTE | 2019-06-15 19:44 | DSES ---
DATE OF ADMISSION: 06/13/2019 DATE OF DISCHARGE: 06/15/2019 DISCHARGE DIAGNOSES: 1. Right mandibular abscess with phlegmon with secondary sepsis. 2. Moderate neutropenia secondary to sepsis and chemotherapy. 3. Stage IV esophageal cancer, on chemotherapy. 4. Anemia secondary to anemia of chronic disease and chemotherapy. 5. Hypertension. 6. Protein calorie malnutrition. 7. Dehydration, moderate. HOSPITAL COURSE: The patient was admitted at the direction of his oromaxillary surgeon, Dr. Banks, after having 2 days prior to admission fever, chills, right mandibular pain. On the day of admission he had a mandibular tooth extracted and abscess drained and then directed for admission. While admitted, the patient was placed on intravenous (IV) Unasyn and IV fluids. He was also given Neupogen subcutaneous times two days with improvement of his leukopenia/absolute neutrophil count. By day of discharge he was afebrile, and his neutropenia had resolved with white blood cells (WBC) up to 5.1. His hemoglobin was stable at 8.1 and platelets at 266 with stable renal panel. His blood cultures on admission remained no growth. The patient was discharged home on Augmentin 875 twice a day times 7 days. At the direction of Dr. Banks he is directed to followup with Dr. Banks in 3-5 days, with oncologist in 5-7 days, and with his primary care physician (PCP), Dr. Steiner, in 3-5 days.
[2019-06-16] MEDS ORDERED: SODIUM CHLORIDE 0.9% INJ 10 ML SYR IV SCH (09:00)
[2019-06-17 10:59] LABS: VITAMIN B12 LEVEL 962 PG/ML (247-911)
== END 2019-06-15 16:30 | disposition home or self-care (01) ==
LOC: M ED 12:54 → M ED INP 12:55 → ENRESERV 18:24 → M MS5PR 18:50
PROVIDERS: ADMIT Internal Medicine; ATTEND Family Medicine
DX: D70.3 Neutropenia due to infection (principal); T81.44XA Sepsis following a procedure, initial encounter; A41.9 Sepsis, unspecified organism; D70.1 Agranulocytosis secondary to cancer chemotherapy; K04.7 Periapical abscess without sinus; K08.409 Partial loss of teeth, unspecified cause, unspecified class; C15.9 Malignant neoplasm of esophagus, unspecified; D53.9 Nutritional anemia, unspecified; D64.81 Anemia due to antineoplastic chemotherapy; I10 Essential (primary) hypertension; E46 Unspecified protein-calorie malnutrition; E86.0 Dehydration; Z98.890 Other specified postprocedural states; R68.84 Jaw pain; R51 Headache; K21.9 Gastro-esophageal reflux disease without esophagitis; E78.5 Hyperlipidemia, unspecified; Z79.899 Other long term (current) drug therapy; F17.290 Nicotine dependence, other tobacco product, uncomplicated
CPT/HCPCS: 36415; 70491; 71045; 80048; 80076; 82550; 82553; 82607; 82803; 83605; 83735; 84484; 85025; 85027; 85046; 85610; 85730; 86140; 86850; 86900; 86901; 87040; 93005; 93041; 96361; 96365; 96366; 96367; 96372; 96375; 96376; 97161; 99285; G0378; J1442; J1642; J2270; J2405; J2543; Q9967

== ENCOUNTER → 2019-06-13 | Outpatient (CLI) | payer MEDICARE ==
[~2019-06-13] MED LIST changes: +AMOX500C PO; +MORP15TA2 PO; +PANT40TA3 PO
[2019-06-13 10:52] LABS: HEMATOCRIT 27.6 % (42.0-52.0); HEMOGLOBIN 9.2 g/dl (13.5-17.5); MEAN CORPUSCULAR HGB CONC 33.3 g/dl (32.0-36.5); MEAN CORPUSCULAR VOLUME 98.9 fl (80.0-96.0); PLATELET COUNT, AUTOMATED 258 10^3/uL (150-450); RED BLOOD COUNT 2.79 10^6/uL (4.30-6.10); WHITE BLOOD COUNT 2.5 10^3/uL (4.0-10.0)
[2019-06-13 11:03] LABS: INR 1.02; PROTHROMBIN TIME 13.1 SECONDS (11.8-14.0)
== END ==
LOC: M LAB 10:13
PROVIDERS: ATTEND Dentist
DX: N27.1 Small kidney, bilateral (principal)

== ENCOUNTER → 2019-09-13 | Outpatient (CLI) | payer MEDICARE, OTHER ==
[~2019-09-13] MED LIST changes: +AMOX500C PO; +LASI20TA3 PO; +MORP15TA2 PO; +OXYCODONE; +PANT40TA3 PO; +POTA10TA16 PO; +SPIR-10 PO
[2019-09-13 11:50] VITALS: BP 142/87
--- NOTE | 2019-09-13 12:24 | REP ---
LIMITED ABDOMINAL ULTRASOUND: Assess for ascites. Three images were obtained showing no ascites. Electronically Signed by Freddie Thurston DO 09/13/2019 12:34 P
== END ==
LOC: M IRPRO 10:27
PROVIDERS: ATTEND Nurse Practitioner Family
DX: R18.8 Other ascites (principal)